=== PATIENT | male | born 2000 | race Caucasian/White ===

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

== ENCOUNTER 2022-07-31 05:52 | Emergency (ER) | payer BC, OTHER ==
[~2022-07-31] VITALS: Ht 188 cm; Wt 106.8 kg
[2022-07-31 07:10] VITALS: BP 130/76
== END 2022-07-31 07:19 | disposition home or self-care (01) ==
LOC: M ED 05:52
DX: R00.2 Palpitations (principal); Z91.013 Allergy to seafood

== ENCOUNTER 2022-08-20 19:07 | Emergency (ER) | payer BC, OTHER ==
[~2022-08-20] VITALS: Ht 190.5 cm; Wt 102.3 kg
[2022-08-20 19:08] VITALS: BP 183/94
[2022-08-20 20:19] LABS: BASO # 0.1 10^3/uL (0.0-0.2); BASO % 1.2 % (0.0-1.0); EOS # 0.9 10^3/uL (0.0-0.5); EOS % 9.1 % (0.0-3.0); HEMATOCRIT 41.5 % (42.0-52.0); HEMOGLOBIN 14.8 g/dl (13.5-17.5); LYMPH # 2.8 10^3/uL (1.5-5.0); LYMPH % 29.3 % (24.0-44.0); MEAN CORPUSCULAR HEMOGLOBIN 32.6 pg (27.0-33.0); MEAN CORPUSCULAR HGB CONC 35.7 g/dl (32.0-36.5); MEAN CORPUSCULAR VOLUME 91.4 fl (80.0-96.0); MONO % 10.8 % (2.0-8.0); NEUTROPHILS # 4.6 10^3/uL (1.5-8.5); NEUTROPHILS % 49.2 % (36.0-66.0); PLATELET COUNT, AUTOMATED 244 10^3/uL (150-450); RED BLOOD COUNT 4.54 10^6/uL (4.30-6.10); WHITE BLOOD COUNT 9.4 10^3/uL (4.0-10.0)
[2022-08-20 20:48] LABS: BLOOD UREA NITROGEN 17 MG/DL (7-18); CALCIUM LEVEL 9.1 MG/DL (8.5-10.1); CARBON DIOXIDE LEVEL 29 MEQ/L (21-32); CHLORIDE LEVEL 105 MEQ/L (98-107); CK-MB VALUE MASS < 1.0 NG/ML (<3.6); CPK CREATINE PHOSPHOKINASE 221 U/L (39-308); CREATININE FOR GFR 0.96 MG/DL (0.70-1.30); GLUCOSE, FASTING 94 MG/DL (70-100); MB/CK RELATIVE INDEX 0.45 (< OR =4); POTASSIUM SERUM 3.9 MEQ/L (3.5-5.1); SODIUM LEVEL 139 MEQ/L (136-145)
== END 2022-08-21 02:55 | disposition left against medical advice (07) ==
LOC: M ED 19:07
DX: Z53.21 Procedure and treatment not carried out due to patient leaving prior to being seen by health care provider (principal)

== ENCOUNTER → 2022-08-27 | Outpatient (CLI) | payer BC, OTHER | LOC: M LAB 14:43 | PROVIDERS: ATTEND Physician Assistant Medical | DX: M25.50 Pain in unspecified joint (principal) ==

== ENCOUNTER 2022-09-10 12:16 | Emergency (ER) | payer BC, OTHER ==
[~2022-09-10] VITALS: Ht 190.5 cm; Wt 109.1 kg
[2022-09-10 12:16] VITALS: BP 175/85
[2022-09-10] MEDS ORDERED: ESCI5SOL3 (12:23)
[2022-09-10] MEDS ORDERED: NS 1,000 ML IV ONE (14:45)
[2022-09-10 15:15] LABS: BASO # 0.1 10^3/uL (0.0-0.2); BASO % 0.8 % (0.0-1.0); EOS # 0.4 10^3/uL (0.0-0.5); EOS % 3.4 % (0.0-3.0); HEMATOCRIT 48.8 % (42.0-52.0); HEMOGLOBIN 17.1 g/dl (13.5-17.5); LYMPH # 1.9 10^3/uL (1.5-5.0); LYMPH % 14.5 % (24.0-44.0); MEAN CORPUSCULAR HEMOGLOBIN 32.4 pg (27.0-33.0); MEAN CORPUSCULAR VOLUME 92.4 fl (80.0-96.0); MONO % 7.5 % (2.0-8.0); NEUTROPHILS # 9.4 10^3/uL (1.5-8.5); NEUTROPHILS % 73.3 % (36.0-66.0); PLATELET COUNT, AUTOMATED 319 10^3/uL (150-450); RED BLOOD COUNT 5.28 10^6/uL (4.30-6.10); WHITE BLOOD COUNT 12.8 10^3/uL (4.0-10.0)
[2022-09-10 15:48] LABS: AMPHETAMINES LEVEL URINE NEGATIVE (NEGATIVE); BARBITURATES URINE NEGATIVE (NEGATIVE); BENZODIAZEPINES URINE NEGATIVE (NEGATIVE); CANNABINOIDS URINE NEGATIVE (NEGATIVE); COCAINE METABOLITE URINE NEGATIVE (NEGATIVE); METHADONE URINE NEGATIVE (NEGATIVE); OPIATES URINE NEGATIVE (NEGATIVE); PHENCYCLIDINE URINE NEGATIVE (NEGATIVE)
[2022-09-10 15:56] LABS: BLOOD UREA NITROGEN 15 MG/DL (9-23); CALCIUM LEVEL 10.2 MG/DL (8.5-10.1); CARBON DIOXIDE LEVEL 30 MMOL/L (20-31); CHLORIDE LEVEL 103 MMOL/L (98-107); CK-MB VALUE MASS < 1.0 NG/ML (<3.6); CPK CREATINE PHOSPHOKINASE 124 U/L (46-171); CREATININE FOR GFR 0.86 MG/DL (0.70-1.30); ETHYL ALCOHOL (ETHANOL) 0.003 % (0.000-0.010); FREE THYROXINE INDEX 2.1 % (1.4-3.8); GLUCOSE, FASTING 94 MG/DL (60-100); POTASSIUM SERUM 4.8 MMOL/L (3.5-5.1); SODIUM LEVEL 141 MMOL/L (136-145); T UPTAKE 31.6 % (22.5-37.0); THYROID STIMULATING HORMONE 1.328 uIU/ML (0.48-4.17); THYROXINE (T4) 6.7 UG/DL (5.5-11.1)
[2022-09-10 16:04] LABS: RSV AMPLIFICATION NEGATIVE (NEGATIVE)
[2022-09-10 16:16] LABS: MONO SCRN NEGATIVE (NEGATIVE)
== END 2022-09-10 16:45 | disposition home or self-care (01) ==
LOC: M ED 12:16
DX: R00.2 Palpitations (principal); I10 Essential (primary) hypertension; F32.9 Major depressive disorder, single episode, unspecified; Z79.899 Other long term (current) drug therapy; Z91.013 Allergy to seafood